=== PATIENT | female | born 1965 | race American Indian/Alaskan Native ===

== ENCOUNTER 2021-02-28 15:02 | Outpatient (CLI) | payer BC ==
--- NOTE | 2021-02-28 18:36 | XRAY Report ---
PROCEDURE: Foot 3 View RT INDICATIONS: RIGHT FOOT AND ANKLE PAIN X 1 WEEK TECHNIQUE: 3 views of the foot were acquired. COMPARISON: Same day right ankle radiograph. FINDINGS: Bones: No fractures or dislocations. No suspicious bony lesions. Calcaneal spur. Soft tissues: No tibiotalar joint effusion. Achilles tendon appears normal. IMPRESSION: No fracture or dislocation. Reviewed by: Martin Mejia MD on 02/28/2021 5:35 PM PEGGY Approved by: Martin Mejia MD on 02/28/2021 5:35 PM AKIVETTE Station ID: [id number]
--- NOTE | 2021-02-28 18:39 | XRAY Report ---
PROCEDURE: Ankle 3 View RT INDICATIONS: RIGHT FOOT/ANKLE PAIN X 1 WEEK TECHNIQUE: 3 views of the ankle were acquired. COMPARISON: Same day foot radiographs. FINDINGS: Bones: No fractures or dislocations. Small calcaneal spur. Ankle mortise is normally aligned. No vanegas spicious bony lesions. Soft tissues: No tibiotalar joint effusion. Achilles tendon appears normal. IMPRESSION: No acute abnormality. Reviewed by: Martin Mejia MD on 02/28/2021 5:38 PM PEGGY Approved by: Martin Mejia MD on 02/28/2021 5:38 PM PEGGY Station ID: [id number]
== END 2021-02-28 15:03 ==
LOC: DI.N 15:02
PROVIDERS: ATTEND Family Medicine
DX: M79.671 Pain in right foot (principal); M25.571 Pain in right ankle and joints of right foot